=== PATIENT | female | born 1945 | race Caucasian/White ===

== ENCOUNTER 2020-01-30 11:28 | Observation (INO) ==
[2020-01-30] MEDS ORDERED: CeFAZolin Syr 2,000MG/20 ML 2,000 MG/20 ML SYRINGE IVPB ONE (11:52)
[2020-01-30] MEDS ORDERED: Ringers Solution, Lactated 1,000 ML IVC SCH ×2 (12:00→16:23)
[2020-01-30] MEDS ORDERED: Ethanol\\Acetic Acid\\Na Ace\\Ben 1,000 ML IRRIG.SOLN IR ONE (12:24)
[2020-01-30] MEDS ORDERED: Vancomycin 1,000 MG VIAL ONE (12:24)
[2020-01-30] MEDS ORDERED: *HR* FentaNYL (PF) 100 MCG/2 ML VIAL ONE ×2 (12:32→13:16)
[2020-01-30] MEDS ORDERED: *HR* Succinylcholine 200 MG/10 ML VIAL IVP ONE (12:32)
[2020-01-30] MEDS ORDERED: *HR* Midazolam HCl 2 MG/2 ML VIAL ONE (12:32)
[2020-01-30] MEDS ORDERED: *HR* Rocuronium Bromide 50 MG/5 ML VIAL ONE (12:32)
[2020-01-30] MEDS ORDERED: Lidocaine HCL 4 ML Topical Solution (Laryng-O-Jet Kit Sterile Pak) TP ONE (12:32)
[2020-01-30] MEDS ORDERED: *HR* Propofol 200 MG/20 ML VIAL IVP ONE (12:32)
[2020-01-30] MEDS ORDERED: Dexamethasone 4 MG/ML VIAL ONE (12:32)
[2020-01-30] MEDS ORDERED: Lidocaine -MPF 2% 2 ML VIAL ONE (12:32)
[2020-01-30] MEDS ORDERED: Ondansetron 4 MG/2 ML VIAL ONE (12:32)
[2020-01-30] MEDS ORDERED: ROPIVACAINE/PF/NS 0.25% 1 EACH SYRINGE INTRAART ONE (12:50)
[2020-01-30] MEDS ORDERED: *HR* OxyCODONE ER (12 HR) 10 MG TABLET PO ONE (12:51)
[2020-01-30] MEDS ORDERED: Celecoxib 200 MG CAPSULE PO ONE ×2 (12:51→13:15)
[2020-01-30] MEDS ORDERED: *HR* OxyCODONE Immed Rel 5 MG TABLET PO PRN (12:52)
[2020-01-30] MEDS ORDERED: *HR* HYDROmorphone PF 0.5 MG/0.5 ML SYRINGE IVP PRN (12:52)
[2020-01-30] MEDS ORDERED: Tranexamic Acid 1,000 MG/10 ML VIAL ONE (13:22)
[2020-01-30] MEDS ORDERED: *HR* PHENYLEPHRINE 1,000 MCG/10 ML SYRINGE IVP ONE (13:25)
[2020-01-30] MEDS ORDERED: Total Joint Mixture (50 ml) INTRAART ONE (13:50)
[2020-01-30] MEDS ORDERED: *HR* HYDROMORPHONE 2 MG/ML VIAL ONE (13:57)
[2020-01-30] MEDS ORDERED: *HR* Labetalol 20 MG/4 ML SYRINGE IVP ONE (14:46)
[2020-01-30 15:40] LABS: Hematocrit 38.9 % (35.3-44.9); Hemoglobin 12.4 g/dL (11.5-15.4)
[2020-01-30] MEDS ORDERED: *HR* Promethazine 25 MG/ML VIAL IVP PRN (16:23)
[2020-01-30] MEDS ORDERED: HYDROcodone BIT/Homatropine 5 MG TABLET PO PRN (16:23)
[2020-01-30] MEDS ORDERED: Sennosides 8.6 MG TABLET PO PRN (16:23)
[2020-01-30] MEDS ORDERED: *HR* Dextrose 50 % in Water (Vial) 50 ML VIAL IVP PRN (16:23)
[2020-01-30] MEDS ORDERED: Naloxone 0.4 MG/ML INJ IVP PRN (16:23)
[2020-01-30] MEDS ORDERED: Dextrose Gel 15 GM/37.5 ML TUBE PO PRN ×2 (16:23)
[2020-01-30] MEDS ORDERED: MOM Conc 10 ML UD.LIQ PO PRN (16:23)
[2020-01-30] MEDS ORDERED: Ondansetron 4 MG/2 ML VIAL IVP PRN (16:23)
[2020-01-30] MEDS ORDERED: D5% in Water 1,000 ML IVC PRN (16:23)
[2020-01-30] MEDS: *HR* OxyCODONE Immed Rel 5 MG TABLET PO PRN ×2 (17:16→23:21)
[2020-01-30] MEDS: Insulin LISPRO 300 UNITS/3 ML VIAL SQ SCH ×2 (17:17→21:55)
[2020-01-30] MEDS: Ascorbic Acid 500 MG TABLET PO SCH (17:17)
[2020-01-30] MEDS: *HR* Metformin 500 MG TABLET PO SCH (17:17)
[2020-01-30] MEDS: CeFAZolin 2 GM/120 ML BAG IVPB SCH (20:45)
[2020-01-31] MEDS: CeFAZolin 2 GM/120 ML BAG IVPB SCH (04:17)
[2020-01-31] MEDS: Insulin LISPRO 300 UNITS/3 ML VIAL SQ SCH ×4 (08:55→21:27)
[2020-01-31] MEDS: Ascorbic Acid 500 MG TABLET PO SCH ×3 (08:58→16:28)
[2020-01-31] MEDS: *HR* Metformin 500 MG TABLET PO SCH ×2 (08:58→16:27)
[2020-01-31] MEDS: Multivit/Ca/Min/Fe/FA 1 TAB TABLET PO SCH (08:58)
[2020-01-31] MEDS ORDERED: NON-FORMULARY MEDICATION 1 EACH EACH (Multivitamin [One Daily Multivitamin] 1 TAB) PO SCH (09:00)
[2020-01-31 09:21] LABS: Basophils % 0.1 %; Hematocrit 35.6 % (35.3-44.9); Hemoglobin 11.1 g/dL (11.5-15.4); Immature Granulocytes % 0.6 % (0-4); Lymphocytes # 1.2 K/mcL (0.6-4.6); Mean Corpuscular HGB Conc 31.2 g/dL (31.6-35.5); Mean Corpuscular Volume 89.7 fL (83.0-100.0); Monocytes # 0.8 K/mcL (0.0-1.3); Monocytes % 6.7 %; Neutrophils # 10.2 K/mcL (1.6-8.9); Platelet Count 269 K/mcL (140-400); Red Blood Count 3.97 M/mcL (3.82-4.97); Red Cell Distribution Width 12.9 % (11.5-14.5); Segmented Neutrophils % 82.6 %; White Blood Count 12.3 K/mcL (4.3-11.1)
[2020-01-31 09:39] LABS: BUN/Creatinine Ratio 23 (6-26); Blood Urea Nitrogen 17 mg/dL (8-23); Calcium 9.3 mg/dL (8.6-10.3); Carbon Dioxide 26 mEq/L (23-29); Chloride 100 mEq/L (98-107); Glucose 127 mg/dL (70-105); Osmolality,Calculated 281 (280-300); Potassium 4.4 mEq/L (3.5-5.1); Sodium 134 mEq/L (136-145); eGFR For African Americans > 60 (> 60); eGFR For Non-African Americans > 60 (> 60)
[2020-01-31] MEDS: Aspirin Enteric Coated 81 MG Tablet PO SCH (12:24)
[2020-01-31] MEDS: *HR* OxyCODONE Immed Rel 5 MG TABLET PO PRN ×3 (12:25→21:42)
[2020-02-01] MEDS: *HR* OxyCODONE Immed Rel 5 MG TABLET PO PRN ×3 (02:49→11:46)
[2020-02-01 06:06] LABS: Basophils # 0.1 K/mcL (0.0-0.2); Basophils % 0.5 %; Eosinophils # 0.1 K/mcL (0.0-0.6); Eosinophils % 1.2 %; Hematocrit 33.7 % (35.3-44.9); Hemoglobin 10.6 g/dL (11.5-15.4); Immature Granulocytes % 0.4 % (0-4); Lymphocytes # 2.4 K/mcL (0.6-4.6); Lymphocytes % 23.2 %; Mean Corpuscular HGB Conc 31.5 g/dL (31.6-35.5); Mean Corpuscular Hemoglobin 29.2 pg (28.0-33.3); Mean Corpuscular Volume 92.8 fL (83.0-100.0); Mean Platelet Volume 11.5 fL (9.4-12.4); Monocytes % 9.3 %; Neutrophils # 6.8 K/mcL (1.6-8.9); Platelet Count 241 K/mcL (140-400); Red Blood Count 3.63 M/mcL (3.82-4.97); Red Cell Distribution Width 13.4 % (11.5-14.5); Segmented Neutrophils % 65.4 %; White Blood Count 10.4 K/mcL (4.3-11.1)
[2020-02-01 06:32] LABS: BUN/Creatinine Ratio 26 (6-26); Blood Urea Nitrogen 21 mg/dL (8-23); Calcium 9.3 mg/dL (8.6-10.3); Carbon Dioxide 27 mEq/L (23-29); Chloride 102 mEq/L (98-107); Glucose 116 mg/dL (70-105); Osmolality,Calculated 286 (280-300); Potassium 4.4 mEq/L (3.5-5.1); Sodium 136 mEq/L (136-145); eGFR For African Americans > 60 (> 60); eGFR For Non-African Americans > 60 (> 60)
[2020-02-01] MEDS: Aspirin Enteric Coated 81 MG Tablet PO SCH (07:21)
[2020-02-01] MEDS: Ascorbic Acid 500 MG TABLET PO SCH ×2 (07:22→15:50)
[2020-02-01] MEDS: *HR* Metformin 500 MG TABLET PO SCH (07:23)
[2020-02-01] MEDS: Multivit/Ca/Min/Fe/FA 1 TAB TABLET PO SCH (07:23)
[2020-02-01] MEDS: Insulin LISPRO 300 UNITS/3 ML VIAL SQ SCH (07:48)
[2020-02-01 12:14] VITALS: BP 136/74
== END 2020-02-01 17:16 ==
LOC: 3NENU 11:28 → SAMDAY 11:28 → 3NENU 16:15
PROVIDERS: ADMIT Orthopaedic Surgery; ATTEND Orthopaedic Surgery